=== PATIENT | male | born 1930 | race Caucasian/White ===

== ENCOUNTER 2021-02-02 19:23 | Observation (INO) | payer MEDICARE, BC ==
[~2021-02-02] VITALS: Ht 177.8 cm; Wt 62.1 kg
--- OUTSIDE RECORDS SUMMARY | 2021-02-02 19:24 | XMS ---
PreManage Notification: CORRINE TRACY Security Shipping/Receiving Manager Events No recent Security Events currently on file CRITERIA MET - [facility] CARE PROVIDERS There are no care providers on record at this time. Rodrigue has no Care Guidelines for this patient. [place] VISIT COUNT (12 MO.) 1 PALMA Garcia TOTAL 1 NOTE: Visits indicate total known visits. ED/C VISIT TRACKING (12 MO.) 02/02/2021 19:23 PALMA Ferguson OR TYPE: Emergency COMPLAINT: - AGRESSIVE INPATIENT VISIT TRACKING (12 MO.) No inpatient visits to display in this time frame [email or web address]
[2021-02-02] MEDS ORDERED: LORAZEPAM1 MG PO (19:54)
[2021-02-02] MEDS ORDERED: TOLTERODINE TART4 MG PO (19:55)
[2021-02-02] MEDS ORDERED: QUETIAPINE FUMA25 MG PO (19:55)
[2021-02-02] MEDS ORDERED: SERTRALINE HCL50 MG PO (19:55)
[2021-02-02] MEDS ORDERED: CIPROFLOXACIN250 MG PO (19:55)
[2021-02-02] MEDS ORDERED: TAMSULOSIN HCL0.4 MG PO (19:56)
[2021-02-02] MEDS ORDERED: OMEPRAZOLE40 MG PO (19:56)
[2021-02-02] MEDS ORDERED: LANTUS SOL100 UNIT/1 SUB-Q (19:56)
[2021-02-02] MEDS ORDERED: TERBINAFINE HC250 MG PO (19:56)
--- NOTE | 2021-02-03 01:00 | NUR ---
PT ARRIVED TO FLOOR VIA STRETCHER. PUDDLE OF URINE NOTED TO BEDDING AND TRANSFER SHEET. PT CLEANED AND ATTENDS CHANGED ON STRETCHER AND THEN PULLED OVER. PT OCCASIONALLY GRABBING AT STAFF DURING CARES AND ASSESSMENT. PT ASSESSMENT COMPLETE. NO NONVERBAL S/SX OF PAIN NOTED. RESPIRATIONS EVEN AND UNLABORED. NO S/SX OF SOB. TELE #4, HR IRREGULAR, 100'S TO 130'S. IV FLUSHED, WNL. CONTINUOUS FLUIDS INFUSING. ATTENDS IN PLACE FOR INCONTINENCE. BED ALARM ACTIVATED. CURTAIN OPENED. ROOM IN VIEW OF RN STATION.
--- NOTE | 2021-02-03 02:28 | NUR ---
PT PULLED TELE LEADS OFF, REPLACED. PT DOES NOT WAKE. BED ALARM ACTIVE. CALL LIGHTIN REACH. ROOM IN VIEW OF RN STATION WITH CURTAIN OPEN.
--- NOTE | 2021-02-03 05:00 | NUR ---
PT ASSESSMENT COMPLETE. PT PLEASANTLY CONFUSED. STATES, " THANK YOU HONEY" AFTER ORAL CARE PERFORMED. NO NONVERBAL S/SX OF PAIN OBSERVED. TELE # 4, SR, HR 80'S TO 90'S. ATTENDS WET, CHANGED. PT REPOSITIONED AND PROPPED WITH PILLOWS. BED ALARM REACTIVATED. CALL LIGHT IN REACH. ROOM IN VIEW OF RN STATION WITH CURTAIN OPEN.
--- NOTE | 2021-02-03 07:57 | NUR ---
PT RESTING SOUNDLY AT TIME OF SHIFT EXCHANGE LEFT UNDISTURBED.
--- NOTE | 2021-02-03 08:47 | NUR ---
PT ASLEEP IN BED. WHITE BOARD UPDATED, CALL LIGHT WITHIN REACH. NO FURTHER NEEDS AT THIS TIME.
--- NOTE | 2021-02-03 08:52 | NUR ---
PT CONTINUES SLEEPING SOUNDLY HE IS NPO STATUS LEFT UNDISTURBED FOR NOW.
--- NOTE | 2021-02-03 09:56 | NUR ---
DR HEBERT IN TO SEE PT. PT IS SLEEPY BUT AWAKENS TO VOICE FOLLOWS COMMANDS APPEARS CHEERFUL
--- NOTE | 2021-02-03 10:32 | NUR ---
PT EATS 50% OF MORNING MEAL WITH STAFF ASSIST. HE TOLERATES APPLE SAUCE AND CREAM OF WHEAT. MINIMAL COUGHING. AGREES HE HAS HAD ENOUGH REFUSES OFFER OF OTHER ITEMS. PT IS CONFUSED TO EVEN TIME AND PLACE BUT IS COOPERATIVE AND CHEERFUL.
--- NOTE | 2021-02-03 11:32 | NUR ---
PT RESTING IN BED TALKATIVE AND CHEERFUL. ASSISTED WTIH ORAL CARE AND REPOSITIONING.
[2021-02-03] MEDS ORDERED: JANUMET 50-5001 EACH PO (11:48)
[2021-02-03] MEDS ORDERED: VITAMIN D350 MCG PO (11:55)
--- NOTE | 2021-02-03 11:58 | NUR ---
MED REC COMPLETE
--- NOTE | 2021-02-03 13:40 | NUR ---
PT TOLERATES A GOOD AMOUNT OF NOON MEAL, CONTINUES TO BE PLEASANTLY CONFUSED. DENIES DISCOMFORTS. BED ALARM IS SET FOR SAFETY
--- NOTE | 2021-02-03 14:45 | NUR ---
PT ASLEEP, DID NOT DISTURB. WILL CONTINUE TO FOLLOW
--- NOTE | 2021-02-03 17:22 | NUR ---
PATIENT IN BED RESTING. VITALS AND I&O'S CHARTED. ATTENDS CHECKED AND DRY AT THIS TIME. BED ALRM ON. CALL LIGHT IN REACH. NO FURTHER NEEDS AT THIS TIME.
--- NOTE | 2021-02-03 18:12 | NUR ---
PT EATS 100% OF EVENING MEAL WITH STAFF ASSIST. CONTINUES TO BE UPBEAT, BUT IS SOMEWHAT RESTLESS WANTING TO GO HOME. APPEARS SLEEPY AFTER MEAL. BED ALARM IS SET
--- NOTE | 2021-02-03 19:00 | NUR ---
BEDSIDE REPORT RECEIVED FROM OFFGOING RNRITKIA. PT RESTING IN BED WITH CALL LIGHT IN REACH.
--- NOTE | 2021-02-03 22:29 | NUR ---
PT ASSESSMENT COMPLETE. PT DISORIENTED TO ALL, PLEASANTLY CONFUSED, CALLS STAFF SWEETHEART. ATTEMPTING TO GET OUT OF BED STATING, "VIBHA GOT TO GET TO THE GIRLS." PT REDIRECTED. ATTENDS CHANGED FOR INCONTINENCE. PT REPOSITIONED AND PROOPPED WITH PILLOWS. IV FLUSHED, WNL. CALL LIGHT IN REACH, BED ALARM ACTIVE. ROOM IN VIEW OF RN STATION WITH CURTAIN OPEN.
--- NOTE | 2021-02-04 00:45 | NUR ---
PT RESTING IN BED WITH EYES CLOSED. RESPIRATIONS EVEN AND UNLABORED. PT APPEARS TO BE SLEEPING. BED ALARM ACTIVE. ROOM IN VIEW OF RN STATION WITH CURTAIN OPEN.
--- NOTE | 2021-02-04 02:45 | NUR ---
PT ASSESSMENT COMPLETE. PT RESPITING IN BED WITH EYES CLOSED. WAKES EASILY BUT REMAINS DROWSY THROUHGOUT ASSESSMENT, FALLS BACK TO SLEEP QUICKLY. NO NONVERBAL S/SX OF PAIN PRESENT. ATTENDS IN PLACE FOR INCONTINENCE. IV FLUSHED. CALL LIGHT IN REACH. ROOM IN VIEW OF RN STATION WITH CURTAIN OPEN. BED ALARM ACTIVE.
--- NOTE | 2021-02-04 04:39 | NUR ---
PT RESTING IN BED, LAYING ON L SIDE WITH EYES CLOSED. RESPIRATIONS EVEN AND UNLABORED. PT APPEARS TO BE SLEEPING. CALL LIGHT IN REACH. BED ALARM ACTIVE. ROOM IN VIEW OF RN STATION WITH CURTAIN OPEN.
--- NOTE | 2021-02-04 06:28 | NUR ---
PT REPOSITIONED IN BED, PROPPED WITH PILLOWS. ORAL CARE PERFORMED. ATTENDS CHANGED. PT VERY THANKFUL FOR CARES, LAUGHING AND SMILING. CALL LIGHT IN REACH. ROOM IN VIEW OF RN STATION WITH CURTAIN OPEN, BED ALARM ACTIVE.
--- NOTE | 2021-02-04 07:24 | NUR ---
PT RESTING EYES CLOSED AT TIME OF SHIFT EXCHANGE. BREATHING EVEN AND UNLABORED APPEARS COMFORTABLE.
--- NOTE | 2021-02-04 09:08 | NUR ---
PT AWAKE AND SMILING STAFF ASSIST WITH MORNING MEAL. PT APPEARS TO BE EATING HEARTILY
--- NOTE | 2021-02-04 09:30 | NUR ---
CONTACTED PATIENTS DAUGHTER VALERIA TO DISCUSS DISCHARGE PLAN. PATIENT DAUGHTER STATES THAT FAMILY IS OKAY TO TAKE THE PATIENT HOME WITH HOSPICE SERVICES WHEN READY. DISCUSSED HOSPICE SERVICE WITH [facility] AND [facility], FAMILY IS OKAY WITH [facility] THEY WOULD BE ABLE TO ADMIT THE PATIENT SOONER. PATIENT DAUGHTER UPDATED OF PATIENT CONDITION. VALERIA STATES SHE WILL BE IN TODAY TO VISIT THE PATIENT. ADVISED VALERIA TO CALL WITH ANY QUESTIONS OR CONCERNS.
--- NOTE | 2021-02-04 09:39 | NUR ---
PT UP TO THE CHAIR AFTER HAVEING A BEDBATH AND ORAL CARE.
--- NOTE | 2021-02-04 09:42 | NUR ---
PATIENT UP TO CHAIR FROM BED, 2PA PIVOT TRANSFER. BED BATH GIVEN. NEW GOWN PROVIDED. CYN CARE, SKIN CARE, AM CARE DONE. LINENS CHANGED. VITALS AND I&O'S CHARTED. CALL LIGHT IN REACH. NO FURTHER NEEDS AT THIS TIME.
--- NOTE | 2021-02-04 09:43 | NUR ---
ASSISTED PT WITH EATING BREAKFAST. PT ABLE TO HELP. ASSISTED PATTIE MCDANIEL WITH BEDBATH, BEDDING CHANGE AND 2 PERSON PIVOT TO BEDSIDE CHAIR. PT TOLERATED WELL AND WAS THANKFUL THROUGHOUT.
--- NOTE | 2021-02-04 10:41 | NUR ---
PT CONTINUES UP IN THE CHAIR. DAUGHTER ([employer] CAREGIVER) IN TO SEE HIM. SHE IS UPDATED ON PT CONDITION AND HOW HIS NIGHT WAS. MEDICATIONS DISCUSSED AND APPEAR TO BE HELPFUL TO THIS PT. HE WAS ABLE TO SLEEP ALL NIGHT AND IS AWAKE THIS SHIFT. EDUCATION PROVIDED FOR CAREGIVER R/T WHEN PT STARTS GRABBING AND GETS CONFUSED. UNDERSTANDING VERBALIZED AND QUESTIONS ANSWERED
--- NOTE | 2021-02-04 14:08 | NUR ---
PATIENT TO BED FROM CHAIR, 2PA PIVOT. CYN CARE DONE, NEW ATTENDS IN PLACE. CALL LIGHT IN REACH. BED ALARM ON. NO FURTHER NEEDS AT THIS TIME.
--- NOTE | 2021-02-04 14:08 | NUR ---
DISCUSSED WITH PATIENT DAUGHTER VALERIA THAT PATIENT WILL NOT QUALIFY FOR INPATIENT STAY AT THIS TIME. EXPLAINED TO PATIENT DAUGHTER PATIENT DOES NOT MEET MEDICAL NECESSITY BY MEDICARE CRITERIA WHICH WILL RESULT IN A BILL FOR THE FAMILY. PATIENTS DAUGHTER HAS AGREED THAT SHE CAN TAKE THE PATIENT HOME AT THIS TIME, BUT WOULD LIKE TO SPEAK WITH DR. HEBERT PRIOR TO DISCHARGE. DR. HEBERT NOTIFIED THAT PATIENT DAUGHTER IS ON HER WAY AT THIS TIME.
[2021-02-04] MEDS ORDERED: TRAZODONE HCL50 MG PO (14:34)
[2021-02-04] MEDS ORDERED: OLANZAPINE ODT5 MG PO (14:35)
--- NOTE | 2021-02-04 14:45 | NUR ---
PATIENT DAUGHTER VALERIA HERE TO SEE PATIENT AND TALK WITH DR. HEBERT. PER RITIKA THOMPSON PATIENT WILL BE DISCHARGE HOME WITH DAUGHTER TODAY. VAN SET UP FOR LINE DRIVER AT 1645. DAUGHTER VALERIA NOTIFIED. STAFF NOTIFIED. VALERIA TO GO HOME TO GET PATIENT CLOTHING THEN WILL RETURN.
--- NOTE | 2021-02-04 16:09 | NUR ---
DAUGHTER IN TO SEE PT, IS ABLE TO SPEAK WITH DR HEBERT AT LENGTH REGARDING HIS CONDITION AND HOME CARE. ALL QUESTIONS ANSWERED. TRANSPORT ARRANGED FOR THIS PT TO BE DC'D HOME LATER TODAY
== END 2021-02-04 16:40 | disposition home or self-care (01) ==
LOC: ED 19:23 → MS 19:24
PROVIDERS: ADMIT Internal Medicine; ATTEND Internal Medicine
DX: F03.91 Unspecified dementia, unspecified severity, with behavioral disturbance (principal); E11.649 Type 2 diabetes mellitus with hypoglycemia without coma; N40.0 Benign prostatic hyperplasia without lower urinary tract symptoms; K21.9 Gastro-esophageal reflux disease without esophagitis; C91.10 Chronic lymphocytic leukemia of B-cell type not having achieved remission; N32.81 Overactive bladder; Z66 Do not resuscitate; Z51.5 Encounter for palliative care; Z79.4 Long term (current) use of insulin; Z79.899 Other long term (current) drug therapy; Z20.822 Contact with and (suspected) exposure to COVID-19
CPT/HCPCS: 51701; 71045; 80053; 81001; 83880; 85025; 99285-25; C9803; G0378; J2060; J3486; J7030; J7121; U0003